=== PATIENT | male | born 1975 | race Caucasian/White ===

== ENCOUNTER → 2020-06-06 | Outpatient (REF) | payer BC | LOC: M SMT 13:27 | PROVIDERS: ATTEND Urology | DX: Z30.2 Encounter for sterilization (principal) ==

== ENCOUNTER → 2020-10-08 | Outpatient (REF) | payer BC ==
[2020-10-08 14:14] LABS: SEMEN APPEARANCE OPAQUE (OPAQUE); SEMEN VISCOSITY LIQUID (LIQUID); SEMEN VOLUME 7.3 ml (2.0-5.0)
[2020-10-08 14:15] LABS: WBC CONCENTRATION <=1 M/ml (<=1 M/ml)
== END ==
LOC: M SMT 13:51
PROVIDERS: ATTEND Urology
DX: Z31.41 Encounter for fertility testing (principal)